=== PATIENT | female | born 1940 | race Caucasian/White ===

== ENCOUNTER 2020-08-10 23:40 | Inpatient (IN) ==
[2020-08-10] MEDS ORDERED: HYDROmorphone 2 MG/1 ML VIAL IV STA (23:58)
[2020-08-10] MEDS ORDERED: SODIUM CHLORIDE 0.9% 500 ML IV STA (23:58)
[2020-08-10] MEDS ORDERED: ONDANSETRON 4 MG/2 ML VIAL IV STA (23:58)
[2020-08-10] MEDS ORDERED: PANTOPRAZOLE 40 MG VIAL IV STA (23:58)
[2020-08-11 00:48] LABS: Basophils % 0.3 % (0.0-0.8); Eosinophils # 0.3 10*3/uL (0.0-0.87); Eosinophils % 3.2 % (0.00-10.9); Hematocrit 37.1 VOL% (35.7-47.0); Hemoglobin 12.5 GM/DL (12.0-16.0); Immature Granulocytes % 0.4 %; Immature Granulocytes Absolute 0.04 #; Lymphocytes # 1.2 10*3/uL (1.4-4.0); Lymphocytes % 11.3 % (21.3-54.2); Mean Corpuscular HGB Conc 33.7 GM/DL (32-36); Mean Platelet Volume 9.9 FL (9.6-12.0); Monocytes % 5.6 % (1.7-12.7); Neutrophils % 79.2 % (38.7-73.9); Platelet Count 192 T/CUMM (130-400); Red Blood Count 3.99 MC/CUMM (3.8-5.5); Red Cell Distribution Width 12.7 % (9.3-17.3); White Blood Count 10.2 T/CUMM (4-12)
[2020-08-11 01:08] LABS: Albumin 3.3 G/DL (3.4-5.0); Bilirubin,Total 0.5 MG/DL (0.2-1.0); Calcium 9.6 MG/DL (8.5-10.1); Potassium 3.4 MMOL/L (3.5-5.1)
[2020-08-11] MEDS ORDERED: POTASSIUM CHLORIDE 20 MEQ TABLET PO STA (01:24)
[2020-08-11 01:35] LABS: Bilirubin,Urine Negative (Negative); Blood, Urine Negative (Negative); Glucose,Urine (UA) Negative (Negative); Hyaline Casts,Urine 6 /LPF (0-3); Ketones,Urine 5 mg/dL (Negative); Mucus,Urine Occasional /LPF (Occasional); Nitrite,Urine Negative (Negative); Protein,Urine Negative; RBC,Urine 1 /HPF (0-4); Urine Appearance CLEAR (Clear); Urine Color Yellow (Yellow); Urine Specific Gravity 1.011 (1.001-1.035); Urine Urobilinogen < 2.0 EU/DL (0.2-1.0); WBC,Urine <1 /HPF (0-6)
[2020-08-11] MEDS ORDERED: HYDROmorphone 2 MG/1 ML VIAL IV PRN (02:56)
[2020-08-11] MEDS ORDERED: SODIUM CHLORIDE 0.9% 1,000 ML IV SCH (03:00)
[2020-08-11] MEDS: ONDANSETRON 4 MG/2 ML VIAL IV PRN (05:55)
[2020-08-11] MEDS ORDERED: CLINDAMYCIN INJ 900 MG in PREMIX 1 EACH IV ONE (07:22)
[2020-08-11] MEDS ORDERED: fentaNYL 100 MCG/2 ML VIAL ONE ×2 (08:12→09:30)
[2020-08-11] MEDS ORDERED: ROCURONIUM 50 MG/5 ML VIAL IV ONE (08:12)
[2020-08-11] MEDS ORDERED: LIDOCAINE 2% 5 ML VIAL ONE ×2 (08:12→10:31)
[2020-08-11] MEDS ORDERED: SEVOFLURANE 1 UNIT/15 MINUTE INH ONE (08:12)
[2020-08-11] MEDS ORDERED: SUCCINYLCHOLINE 200 MG/10 ML VIAL ONE (08:12)
[2020-08-11] MEDS ORDERED: ETOMIDATE 40 MG/20 ML VIAL IV ONE (08:12)
[2020-08-11] MEDS ORDERED: ALBUMIN 5% 12.5 GM/250 ML VIAL IV ONE (08:16)
[2020-08-11] MEDS ORDERED: PANTOPRAZOLE 40 MG TABLET PO SCH (09:00)
[2020-08-11] MEDS ORDERED: CLOPIDOGREL 75 MG TABLET PO SCH (09:00)
[2020-08-11] MEDS ORDERED: PHENYLEPHRINE 1 MG/10 ML SYRINGE IV ONE (09:07)
[2020-08-11] MEDS ORDERED: ONDANSETRON 4 MG/2 ML VIAL ONE (10:05)
[2020-08-11] MEDS ORDERED: DEXAMETHASONE 4 MG/1 ML VIAL ONE ×2 (10:05→10:31)
[2020-08-11] MEDS ORDERED: SUGAMMADEX 200 MG/2 ML VIAL IV ONE (10:06)
[2020-08-11] MEDS ORDERED: ROPIVACAINE 0.5% 30 ML VIAL ONE (10:31)
[2020-08-11 10:46] LABS: Bacteria,Urine Occasional /HPF (Few); Bilirubin,Urine Negative (Negative); Blood, Urine Small mg/dL (Negative); Glucose,Urine (UA) Negative (Negative); Ketones,Urine 5 mg/dL (Negative); Nitrite,Urine Negative (Negative); Protein,Urine Negative; RBC,Urine <1 /HPF (0-4); Squamous Epithelial Cell,Urine Occasional /HPF (0-10); Urine Appearance CLEAR (Clear); Urine Color Yellow (Yellow); Urine Specific Gravity 1.023 (1.001-1.035); Urine Urobilinogen < 2.0 EU/DL (0.2-1.0); WBC,Urine <1 /HPF (0-6)
[2020-08-11] MEDS: LOSARTAN 50 MG TABLET PO SCH (14:21)
[2020-08-11] MEDS: busPIRone 15 MG TABLET PO SCH ×2 (14:21→21:18)
[2020-08-11] MEDS: buPROPion SR 150 MG TABLET PO SCH (14:21)
[2020-08-11] MEDS: MULTIVITAMIN (CENTRUM) TABLET PO SCH (14:21)
[2020-08-11] MEDS: DILTIAZEM CD 300 MG CAPSULE PO SCH (14:22)
[2020-08-11] MEDS: ESCITALOPRAM 10 MG TABLET PO SCH (14:22)
[2020-08-11] MEDS: DILTIAZEM CD 120 MG CAPSULE PO SCH (14:23)
[2020-08-11] MEDS: PANTOPRAZOLE 40 MG VIAL IV SCH (14:24)
[2020-08-11] MEDS: ATORVASTATIN 40 MG TABLET PO SCH (14:24)
[2020-08-11] MEDS: MEMANTINE 10 MG TABLET PO SCH ×2 (14:24→21:18)
[2020-08-11] MEDS: DEXTROSE 5% LACTATED RINGERS 1,000 ML IV SCH ×2 (14:25→22:50)
[2020-08-11] MEDS ORDERED: POLYVINYL ALCOHOL 1.4% OPH SOLN 15 ML BOTTLE BOTH EYES PRN (21:09)
[2020-08-11] MEDS: DONEPEZIL 10 MG TABLET PO SCH (21:17)
[2020-08-11] MEDS: ZALEPLON 5 MG CAPSULE PO SCH (21:18)
[2020-08-12 05:33] LABS: Basophils % 0.1 % (0.0-0.8); Hematocrit 37.3 VOL% (35.7-47.0); Hemoglobin 12.3 GM/DL (12.0-16.0); Immature Granulocytes % 0.3 %; Immature Granulocytes Absolute 0.03 #; Lymphocytes # 0.6 10*3/uL (1.4-4.0); Mean Corpuscular Volume 93.5 FL (87-102); Monocytes % 5.5 % (1.7-12.7); Neutrophils % 89.1 % (38.7-73.9); Platelet Count 190 T/CUMM (130-400); Red Blood Count 3.99 MC/CUMM (3.8-5.5); White Blood Count 11.6 T/CUMM (4-12)
[2020-08-12 06:01] LABS: Acanthocytes Few; Band Neutrophils 3 % (0-10); Hypochromasia 1+; Lymphocytes 2 % (20-55); Microcytosis 1+; Segmented Neutrophils 91 % (50-85); Total Cells Counted 100
[2020-08-12 06:02] LABS: Platelet Estimate Adequate
[2020-08-12 06:04] LABS: Albumin 2.8 G/DL (3.4-5.0); Bilirubin,Total 0.7 MG/DL (0.2-1.0); Calcium 9.2 MG/DL (8.5-10.1); Osmolality,Calculated 282.5 MOS/KG (273-304); Potassium 3.8 MMOL/L (3.5-5.1); Total Protein 6.2 G/DL (6.4-8.3)
[2020-08-12] MEDS: DEXTROSE 5% LACTATED RINGERS 1,000 ML IV SCH ×5 (07:35→20:43)
[2020-08-12] MEDS: ESCITALOPRAM 10 MG TABLET PO SCH (08:52)
[2020-08-12] MEDS: DILTIAZEM CD 300 MG CAPSULE PO SCH (08:52)
[2020-08-12] MEDS: buPROPion SR 150 MG TABLET PO SCH (08:52)
[2020-08-12] MEDS: busPIRone 15 MG TABLET PO SCH ×2 (08:53→20:43)
[2020-08-12] MEDS: LOSARTAN 50 MG TABLET PO SCH (08:53)
[2020-08-12] MEDS: ATORVASTATIN 40 MG TABLET PO SCH (08:53)
[2020-08-12] MEDS: DILTIAZEM CD 120 MG CAPSULE PO SCH (08:53)
[2020-08-12] MEDS: MEMANTINE 10 MG TABLET PO SCH ×2 (08:53→20:43)
[2020-08-12] MEDS: MULTIVITAMIN (CENTRUM) TABLET PO SCH (08:53)
[2020-08-12] MEDS: PANTOPRAZOLE 40 MG VIAL IV SCH (08:58)
[2020-08-12] MEDS: HYDROmorphone 2 MG/1 ML VIAL IV PRN (10:42)
[2020-08-12] MEDS: ONDANSETRON 4 MG/2 ML VIAL IV PRN (18:49)
[2020-08-12] MEDS: DONEPEZIL 10 MG TABLET PO SCH (20:43)
[2020-08-12] MEDS: ZALEPLON 5 MG CAPSULE PO SCH (20:43)
[2020-08-13] MEDS: HYDROmorphone 2 MG/1 ML VIAL IV PRN ×3 (03:16→18:10)
[2020-08-13] MEDS: DEXTROSE 5% LACTATED RINGERS 1,000 ML IV SCH ×3 (03:16→20:20)
[2020-08-13 04:59] LABS: Basophils % 0.2 % (0.0-0.8); Eosinophils % 0.1 % (0.00-10.9); Hematocrit 35.7 VOL% (35.7-47.0); Immature Granulocytes % 0.3 %; Immature Granulocytes Absolute 0.04 #; Lymphocytes # 0.8 10*3/uL (1.4-4.0); Lymphocytes % 6.3 % (21.3-54.2); Mean Corpuscular HGB Conc 33.6 GM/DL (32-36); Mean Corpuscular Volume 92.5 FL (87-102); Monocytes % 8.3 % (1.7-12.7); Neutrophils % 84.8 % (38.7-73.9); Platelet Count 177 T/CUMM (130-400); Red Blood Count 3.86 MC/CUMM (3.8-5.5); Red Cell Distribution Width 13.1 % (9.3-17.3); White Blood Count 12.5 T/CUMM (4-12)
[2020-08-13 05:28] LABS: Calcium 8.9 MG/DL (8.5-10.1); Osmolality,Calculated 283.3 MOS/KG (273-304); Potassium 3.5 MMOL/L (3.5-5.1)
[2020-08-13] MEDS: DILTIAZEM CD 300 MG CAPSULE PO SCH (09:11)
[2020-08-13] MEDS: MULTIVITAMIN (CENTRUM) TABLET PO SCH (09:11)
[2020-08-13] MEDS: LOSARTAN 50 MG TABLET PO SCH (09:12)
[2020-08-13] MEDS: ATORVASTATIN 40 MG TABLET PO SCH (09:12)
[2020-08-13] MEDS: MEMANTINE 10 MG TABLET PO SCH ×2 (09:12→20:20)
[2020-08-13] MEDS: ESCITALOPRAM 10 MG TABLET PO SCH (09:12)
[2020-08-13] MEDS: busPIRone 15 MG TABLET PO SCH ×2 (09:12→20:20)
[2020-08-13] MEDS: DILTIAZEM CD 120 MG CAPSULE PO SCH (09:12)
[2020-08-13] MEDS: PANTOPRAZOLE 40 MG VIAL IV SCH (09:13)
[2020-08-13] MEDS: buPROPion SR 150 MG TABLET PO SCH (09:13)
[2020-08-13] MEDS: ZALEPLON 5 MG CAPSULE PO SCH (20:20)
[2020-08-13] MEDS: DONEPEZIL 10 MG TABLET PO SCH (20:20)
[2020-08-14] MEDS: DEXTROSE 5% LACTATED RINGERS 1,000 ML IV SCH ×2 (03:15→11:01)
[2020-08-14 07:46] LABS: Basophils % 0.2 % (0.0-0.8); Eosinophils # 0.1 10*3/uL (0.0-0.87); Eosinophils % 0.9 % (0.00-10.9); Hematocrit 39.9 VOL% (35.7-47.0); Hemoglobin 13.7 GM/DL (12.0-16.0); Immature Granulocytes % 0.6 %; Immature Granulocytes Absolute 0.07 #; Lymphocytes # 0.9 10*3/uL (1.4-4.0); Lymphocytes % 7.3 % (21.3-54.2); Mean Corpuscular HGB Conc 34.3 GM/DL (32-36); Mean Corpuscular Volume 91.3 FL (87-102); Mean Platelet Volume 9.7 FL (9.6-12.0); Monocytes % 8.6 % (1.7-12.7); Neutrophils % 82.4 % (38.7-73.9); Platelet Count 201 T/CUMM (130-400); Red Blood Count 4.37 MC/CUMM (3.8-5.5); Red Cell Distribution Width 12.7 % (9.3-17.3); White Blood Count 12.4 T/CUMM (4-12)
[2020-08-14 08:05] LABS: Calcium 8.9 MG/DL (8.5-10.1); Osmolality,Calculated 275.5 MOS/KG (273-304); Potassium 2.8 MMOL/L (3.5-5.1)
[2020-08-14] MEDS: DILTIAZEM CD 300 MG CAPSULE PO SCH (08:31)
[2020-08-14] MEDS: DILTIAZEM CD 120 MG CAPSULE PO SCH (08:31)
[2020-08-14] MEDS: ESCITALOPRAM 10 MG TABLET PO SCH (08:31)
[2020-08-14] MEDS: LOSARTAN 50 MG TABLET PO SCH (08:31)
[2020-08-14] MEDS: MULTIVITAMIN (CENTRUM) TABLET PO SCH (08:31)
[2020-08-14] MEDS: busPIRone 15 MG TABLET PO SCH ×2 (08:31→21:02)
[2020-08-14] MEDS: MEMANTINE 10 MG TABLET PO SCH ×2 (08:32→21:03)
[2020-08-14] MEDS: ATORVASTATIN 40 MG TABLET PO SCH (08:32)
[2020-08-14] MEDS: PANTOPRAZOLE 40 MG VIAL IV SCH (08:33)
[2020-08-14] MEDS: buPROPion SR 150 MG TABLET PO SCH (08:33)
[2020-08-14] MEDS: PANTOPRAZOLE 40 MG TABLET PO SCH (08:33)
[2020-08-14] MEDS ORDERED: POTASSIUM CHLORIDE RIDER 10 MEQ in PREMIX 1 EACH IV SCH (10:00)
[2020-08-14] MEDS ORDERED: MAGNESIUM SULF RIDER 4 GM in PREMIX 1 EACH IV ONE (11:00)
[2020-08-14] MEDS ORDERED: MAGNESIUM SULF INJ 4 GM, POTASSIUM CHLORIDE INJ 50 MEQ in SODIUM CHLORIDE 0.9% 500 ML IV ONE (11:00)
[2020-08-14] MEDS: hydrALAZINE 20 MG/1 ML VIAL IV PRN (11:31)
[2020-08-14] MEDS: DONEPEZIL 10 MG TABLET PO SCH (21:02)
[2020-08-14] MEDS: ZALEPLON 5 MG CAPSULE PO SCH (21:03)
[2020-08-15] MEDS: DEXTROSE 5% LACTATED RINGERS 1,000 ML IV SCH ×3 (01:14→17:02)
[2020-08-15] MEDS: MULTIVITAMIN (CENTRUM) TABLET PO SCH (08:59)
[2020-08-15] MEDS: PANTOPRAZOLE 40 MG TABLET PO SCH (08:59)
[2020-08-15] MEDS: DILTIAZEM CD 120 MG CAPSULE PO SCH (09:00)
[2020-08-15] MEDS: ATORVASTATIN 40 MG TABLET PO SCH (09:00)
[2020-08-15] MEDS: LOSARTAN 50 MG TABLET PO SCH (09:00)
[2020-08-15] MEDS: busPIRone 15 MG TABLET PO SCH ×2 (09:00→21:02)
[2020-08-15] MEDS: MEMANTINE 10 MG TABLET PO SCH ×2 (09:01→21:02)
[2020-08-15] MEDS: buPROPion SR 150 MG TABLET PO SCH (09:01)
[2020-08-15] MEDS: ESCITALOPRAM 10 MG TABLET PO SCH (09:01)
[2020-08-15] MEDS: DILTIAZEM CD 300 MG CAPSULE PO SCH (09:01)
[2020-08-15] MEDS: hydrALAZINE 20 MG/1 ML VIAL IV PRN (15:53)
[2020-08-15] MEDS: ZALEPLON 5 MG CAPSULE PO SCH (21:02)
[2020-08-15] MEDS: DONEPEZIL 10 MG TABLET PO SCH (21:02)
[2020-08-16] MEDS: DEXTROSE 5% LACTATED RINGERS 1,000 ML IV SCH ×3 (01:30→18:23)
[2020-08-16 07:26] LABS: Basophils % 0.2 % (0.0-0.8); Eosinophils # 0.7 10*3/uL (0.0-0.87); Hematocrit 37.6 VOL% (35.7-47.0); Hemoglobin 12.3 GM/DL (12.0-16.0); Immature Granulocytes % 0.8 %; Immature Granulocytes Absolute 0.13 #; Lymphocytes # 1.2 10*3/uL (1.4-4.0); Lymphocytes % 7.3 % (21.3-54.2); Mean Corpuscular HGB Conc 32.7 GM/DL (32-36); Mean Corpuscular Volume 92.6 FL (87-102); Monocytes % 6.8 % (1.7-12.7); Neutrophils % 80.9 % (38.7-73.9); Platelet Count 234 T/CUMM (130-400); Red Blood Count 4.06 MC/CUMM (3.8-5.5); White Blood Count 16.3 T/CUMM (4-12)
[2020-08-16 07:48] LABS: Calcium 8.3 MG/DL (8.5-10.1); Osmolality,Calculated 277.5 MOS/KG (273-304); Potassium 2.7 MMOL/L (3.5-5.1)
[2020-08-16] MEDS: DILTIAZEM CD 120 MG CAPSULE PO SCH (09:19)
[2020-08-16] MEDS: PANTOPRAZOLE 40 MG TABLET PO SCH (09:19)
[2020-08-16] MEDS: ATORVASTATIN 40 MG TABLET PO SCH (09:19)
[2020-08-16] MEDS: LOSARTAN 50 MG TABLET PO SCH (09:19)
[2020-08-16] MEDS: ESCITALOPRAM 10 MG TABLET PO SCH (09:19)
[2020-08-16] MEDS: busPIRone 15 MG TABLET PO SCH ×2 (09:19→21:26)
[2020-08-16] MEDS: MULTIVITAMIN (CENTRUM) TABLET PO SCH (09:20)
[2020-08-16] MEDS: DILTIAZEM CD 300 MG CAPSULE PO SCH (09:20)
[2020-08-16] MEDS: MEMANTINE 10 MG TABLET PO SCH ×2 (09:20→21:27)
[2020-08-16] MEDS: buPROPion SR 150 MG TABLET PO SCH (09:24)
[2020-08-16] MEDS: CIPROFLOXACIN INJ 400 MG in PREMIX 1 EACH IV SCH ×2 (09:26→21:29)
[2020-08-16] MEDS: POTASSIUM CHLORIDE 20 MEQ TABLET PO PRN ×3 (10:22→15:45)
[2020-08-16] MEDS ORDERED: DOCUSATE SODIUM 100 MG CAPSULE PO PRN (14:16)
[2020-08-16] MEDS: ZALEPLON 5 MG CAPSULE PO SCH (21:27)
[2020-08-16] MEDS: DONEPEZIL 10 MG TABLET PO SCH (21:27)
[2020-08-17] MEDS: DEXTROSE 5% LACTATED RINGERS 1,000 ML IV SCH (02:30)
[2020-08-17] MEDS: hydrALAZINE 20 MG/1 ML VIAL IV PRN ×2 (04:25→17:03)
[2020-08-17 06:07] LABS: Basophils % 0.2 % (0.0-0.8); Eosinophils # 0.8 10*3/uL (0.0-0.87); Eosinophils % 4.5 % (0.00-10.9); Hematocrit 35.4 VOL% (35.7-47.0); Hemoglobin 11.6 GM/DL (12.0-16.0); Immature Granulocytes % 0.9 %; Immature Granulocytes Absolute 0.15 #; Lymphocytes # 1.3 10*3/uL (1.4-4.0); Lymphocytes % 7.7 % (21.3-54.2); Mean Corpuscular HGB Conc 32.8 GM/DL (32-36); Mean Corpuscular Volume 94.1 FL (87-102); Mean Platelet Volume 9.7 FL (9.6-12.0); Neutrophils % 80.7 % (38.7-73.9); Platelet Count 243 T/CUMM (130-400); Red Blood Count 3.76 MC/CUMM (3.8-5.5); Red Cell Distribution Width 13.1 % (9.3-17.3)
[2020-08-17 06:21] LABS: Calcium 8.5 MG/DL (8.5-10.1); Osmolality,Calculated 275.5 MOS/KG (273-304); Potassium 3.5 MMOL/L (3.5-5.1)
[2020-08-17] MEDS: MULTIVITAMIN (CENTRUM) TABLET PO SCH (09:09)
[2020-08-17] MEDS: DILTIAZEM CD 120 MG CAPSULE PO SCH (09:09)
[2020-08-17] MEDS: ATORVASTATIN 40 MG TABLET PO SCH (09:10)
[2020-08-17] MEDS: DILTIAZEM CD 300 MG CAPSULE PO SCH (09:10)
[2020-08-17] MEDS: ESCITALOPRAM 10 MG TABLET PO SCH (09:11)
[2020-08-17] MEDS: LOSARTAN 50 MG TABLET PO SCH (09:11)
[2020-08-17] MEDS: MEMANTINE 10 MG TABLET PO SCH ×2 (09:11→21:24)
[2020-08-17] MEDS: PANTOPRAZOLE 40 MG TABLET PO SCH (09:11)
[2020-08-17] MEDS: busPIRone 15 MG TABLET PO SCH ×2 (09:12→21:24)
[2020-08-17] MEDS: buPROPion SR 150 MG TABLET PO SCH (09:14)
[2020-08-17] MEDS: metroNIDAZOLE INJ 500 MG in PREMIX 1 EACH IV SCH ×2 (09:16→17:02)
[2020-08-17] MEDS: POTASSIUM CHLORIDE RIDER 10 MEQ in PREMIX 1 EACH IV SCH ×4 (11:09→15:03)
[2020-08-17] MEDS ORDERED: LEVOFLOXACIN INJ 750 MG in PREMIX 1 EACH IV SCH (21:00)
[2020-08-17] MEDS: ZALEPLON 5 MG CAPSULE PO SCH (21:23)
[2020-08-17] MEDS: DONEPEZIL 10 MG TABLET PO SCH (21:23)
[2020-08-17] MEDS: HYDROmorphone 2 MG/1 ML VIAL IV PRN (21:34)
[2020-08-18] MEDS: metroNIDAZOLE INJ 500 MG in PREMIX 1 EACH IV SCH ×2 (01:34→09:31)
[2020-08-18 05:32] LABS: Basophils % 0.2 % (0.0-0.8); Eosinophils # 0.8 10*3/uL (0.0-0.87); Eosinophils % 5.8 % (0.00-10.9); Hematocrit 31.4 VOL% (35.7-47.0); Hemoglobin 10.9 GM/DL (12.0-16.0); Immature Granulocytes Absolute 0.13 #; Lymphocytes % 7.8 % (21.3-54.2); Mean Corpuscular HGB Conc 34.7 GM/DL (32-36); Mean Corpuscular Volume 90.2 FL (87-102); Mean Platelet Volume 9.1 FL (9.6-12.0); Monocytes % 6.9 % (1.7-12.7); Neutrophils % 78.3 % (38.7-73.9); Platelet Count 239 T/CUMM (130-400); Red Blood Count 3.48 MC/CUMM (3.8-5.5); White Blood Count 13.1 T/CUMM (4-12)
[2020-08-18 06:03] LABS: Calcium 8.8 MG/DL (8.5-10.1); Osmolality,Calculated 267.2 MOS/KG (273-304); Potassium 3.8 MMOL/L (3.5-5.1)
[2020-08-18] MEDS: MEMANTINE 10 MG TABLET PO SCH (09:30)
[2020-08-18] MEDS: PANTOPRAZOLE 40 MG TABLET PO SCH (09:30)
[2020-08-18] MEDS: busPIRone 15 MG TABLET PO SCH (09:30)
[2020-08-18] MEDS: ESCITALOPRAM 10 MG TABLET PO SCH (09:30)
[2020-08-18] MEDS: ATORVASTATIN 40 MG TABLET PO SCH (09:30)
[2020-08-18] MEDS: MULTIVITAMIN (CENTRUM) TABLET PO SCH (09:30)
[2020-08-18] MEDS: buPROPion SR 150 MG TABLET PO SCH (09:30)
[2020-08-18] MEDS: DILTIAZEM CD 300 MG CAPSULE PO SCH (09:31)
[2020-08-18] MEDS: DILTIAZEM CD 120 MG CAPSULE PO SCH (09:31)
[2020-08-18 12:10] VITALS: BP 155/67
== END 2020-08-18 13:10 | disposition home health service (06) | DRG 330 ==
LOC: N.ED 23:40 → N.EDINP 23:40 → N.5E 08-11 13:54
PROVIDERS: ADMIT Student in an Organized Health Care Education/Training Program; ATTEND Student in an Organized Health Care Education/Training Program

== ENCOUNTER 2020-08-25 12:37 | Inpatient (IN) ==
[2020-08-25 13:49] LABS: Basophils # 0.1 10*3/uL (0.0-0.2); Basophils % 0.4 % (0.0-0.8); Eosinophils # 0.3 10*3/uL (0.0-0.87); Eosinophils % 2.4 % (0.00-10.9); Hematocrit 20.5 VOL% (35.7-47.0); Hemoglobin 6.5 GM/DL (12.0-16.0); Immature Granulocytes % 1.1 %; Immature Granulocytes Absolute 0.16 #; Lymphocytes # 1.6 10*3/uL (1.4-4.0); Lymphocytes % 11.5 % (21.3-54.2); Mean Corpuscular HGB Conc 31.7 GM/DL (32-36); Mean Corpuscular Volume 96.7 FL (87-102); Mean Platelet Volume 9.1 FL (9.6-12.0); Monocytes % 6.6 % (1.7-12.7); Platelet Count 376 T/CUMM (130-400); Red Blood Count 2.12 MC/CUMM (3.8-5.5); Red Cell Distribution Width 13.9 % (9.3-17.3)
[2020-08-25 14:11] LABS: Alanine Aminotransferase 16 U/L (13-56); Albumin 2.5 G/DL (3.4-5.0); Alkaline Phosphatase 72 U/L (45-117); Aspartate Amino Transferase 17 U/L (0-37); Bilirubin,Total < 0.39 MG/DL (0.2-1.0); Blood Urea Nitrogen 42 MG/DL (7-18); Calcium 8.6 MG/DL (8.5-10.1); Carbon Dioxide 29 MMOL/L (21-32); Estimated Glom Filtration Rate 33 ML/MIN; Glucose 114 MG/DL (74-106); Osmolality,Calculated 290.4 MOS/KG (273-304); Potassium 4.4 MMOL/L (3.5-5.1); Sodium 140 MMOL/L (136-145); Total Protein 4.8 G/DL (5.0-7.5)
[2020-08-25 14:12] LABS: INR 1.1; PT Patient Result 11.3 SECS (9.8-11.9); Partial Thromboplastin Time 21.6 SECS (23.9-33.8)
[2020-08-25] MEDS ORDERED: SODIUM CHLORIDE 0.9% 1,000 ML IV PRN (14:41)
[2020-08-25] MEDS ORDERED: DEXTROSE 50% 25 GM/50 ML VIAL IV PRN (15:18)
[2020-08-25] MEDS ORDERED: GLUCAGON 1 MG VIAL IM PRN (15:18)
[2020-08-25] MEDS ORDERED: ONDANSETRON 4 MG/2 ML VIAL IV PRN (15:18)
[2020-08-25] MEDS ORDERED: ACETAMINOPHEN 325 MG TABLET PO PRN (15:18)
[2020-08-25] MEDS: SODIUM CHLORIDE 0.9% 1,000 ML IV SCH (16:57)
[2020-08-25] MEDS: PANTOPRAZOLE 40 MG TABLET PO SCH (16:57)
[2020-08-25 18:13] LABS: Hematocrit 18.8 VOL% (35.7-47.0)
[2020-08-25 20:32] LABS: Bacteria,Urine Occasional /HPF (Few); Bilirubin,Urine Negative (Negative); Blood, Urine Negative (Negative); Glucose,Urine (UA) Negative (Negative); Ketones,Urine Negative (Negative); Nitrite,Urine Negative (Negative); Protein,Urine Negative; RBC,Urine 3 /HPF (0-4); Squamous Epithelial Cell,Urine Occasional /HPF (0-10); Urine Appearance CLEAR (Clear); Urine Color Yellow (Yellow); Urine Urobilinogen < 2.0 EU/DL (0.2-1.0); WBC,Urine 7 /HPF (0-6)
[2020-08-25] MEDS: MEMANTINE 10 MG TABLET PO SCH (20:57)
[2020-08-25] MEDS: DONEPEZIL 10 MG TABLET PO SCH (20:57)
[2020-08-25] MEDS: ZALEPLON 5 MG CAPSULE PO PRN (21:01)
[2020-08-26] MEDS: SODIUM CHLORIDE 0.9% 1,000 ML IV SCH ×2 (02:08→16:52)
[2020-08-26 04:10] LABS: Basophils # 0.1 10*3/uL (0.0-0.2); Basophils % 0.5 % (0.0-0.8); Eosinophils # 0.4 10*3/uL (0.0-0.87); Eosinophils % 4.4 % (0.00-10.9); Hematocrit 23.8 VOL% (35.7-47.0); Hemoglobin 8.1 GM/DL (12.0-16.0); Immature Granulocytes % 0.9 %; Immature Granulocytes Absolute 0.09 #; Lymphocytes # 1.8 10*3/uL (1.4-4.0); Lymphocytes % 18.2 % (21.3-54.2); Mean Corpuscular Volume 91.2 FL (87-102); Mean Platelet Volume 8.9 FL (9.6-12.0); Monocytes % 7.3 % (1.7-12.7); NRBC # 0.03 10*3/uL; Neutrophils % 68.7 % (38.7-73.9); Platelet Count 259 T/CUMM (130-400); Red Blood Count 2.61 MC/CUMM (3.8-5.5); Red Cell Distribution Width 13.7 % (9.3-17.3); White Blood Count 10.1 T/CUMM (4-12)
[2020-08-26 04:45] LABS: Bilirubin,Total 0.6 MG/DL (0.2-1.0); Calcium 8.3 MG/DL (8.5-10.1); Osmolality,Calculated 285.3 MOS/KG (273-304); Potassium 3.8 MMOL/L (3.5-5.1); Thyroid Stimulating Hormone 5.84 uIU/ml (0.358-3.74); Total Protein 4.3 G/DL (5.0-7.5)
[2020-08-26] MEDS ORDERED: SODIUM CHLORIDE 0.9% 1,000 ML IV PRN (08:36)
[2020-08-26] MEDS: ATORVASTATIN 40 MG TABLET PO SCH (09:40)
[2020-08-26] MEDS: buPROPion XL 150 MG TABLET PO SCH (09:40)
[2020-08-26] MEDS: PANTOPRAZOLE 40 MG TABLET PO SCH (09:40)
[2020-08-26] MEDS: MEMANTINE 10 MG TABLET PO SCH ×2 (09:41→21:04)
[2020-08-26 13:23] LABS: Hematocrit 27.6 VOL% (35.7-47.0); Hemoglobin 9.2 GM/DL (12.0-16.0)
[2020-08-26 20:54] LABS: Hematocrit 26.1 VOL% (35.7-47.0); Hemoglobin 8.7 GM/DL (12.0-16.0)
[2020-08-26] MEDS: DONEPEZIL 10 MG TABLET PO SCH (21:04)
[2020-08-26] MEDS: ZALEPLON 5 MG CAPSULE PO PRN (21:04)
[2020-08-27 05:30] LABS: Basophils % 0.4 % (0.0-0.8); Eosinophils # 0.4 10*3/uL (0.0-0.87); Eosinophils % 5.9 % (0.00-10.9); Hematocrit 26.1 VOL% (35.7-47.0); Hemoglobin 8.5 GM/DL (12.0-16.0); Immature Granulocytes % 1.1 %; Immature Granulocytes Absolute 0.08 #; Lymphocytes # 1.1 10*3/uL (1.4-4.0); Mean Corpuscular HGB Conc 32.6 GM/DL (32-36); Mean Corpuscular Volume 94.6 FL (87-102); Mean Platelet Volume 8.7 FL (9.6-12.0); Monocytes % 9.3 % (1.7-12.7); NRBC # 0.03 10*3/uL; Neutrophils % 68.3 % (38.7-73.9); Platelet Count 259 T/CUMM (130-400); Red Blood Count 2.76 MC/CUMM (3.8-5.5); White Blood Count 7.4 T/CUMM (4-12)
[2020-08-27 05:56] LABS: Calcium 8.5 MG/DL (8.5-10.1); Osmolality,Calculated 283.1 MOS/KG (273-304); Potassium 3.3 MMOL/L (3.5-5.1)
[2020-08-27] MEDS: ATORVASTATIN 40 MG TABLET PO SCH (08:21)
[2020-08-27] MEDS: buPROPion XL 150 MG TABLET PO SCH (08:21)
[2020-08-27] MEDS: POTASSIUM CHLORIDE 20 MEQ TABLET PO PRN ×3 (08:21→13:32)
[2020-08-27] MEDS: PANTOPRAZOLE 40 MG TABLET PO SCH (08:21)
[2020-08-27] MEDS: MEMANTINE 10 MG TABLET PO SCH ×2 (08:21→21:13)
[2020-08-27] MEDS: SODIUM CHLORIDE 0.9% 1,000 ML IV SCH (09:29)
[2020-08-27] MEDS: DONEPEZIL 10 MG TABLET PO SCH (21:13)
[2020-08-28 04:16] LABS: Basophils % 0.4 % (0.0-0.8); Eosinophils # 0.4 10*3/uL (0.0-0.87); Eosinophils % 5.5 % (0.00-10.9); Hematocrit 26.8 VOL% (35.7-47.0); Immature Granulocytes Absolute 0.07 #; Lymphocytes # 1.5 10*3/uL (1.4-4.0); Lymphocytes % 20.8 % (21.3-54.2); Mean Corpuscular HGB Conc 33.6 GM/DL (32-36); Mean Corpuscular Volume 93.4 FL (87-102); Mean Platelet Volume 8.7 FL (9.6-12.0); Monocytes % 10.5 % (1.7-12.7); Neutrophils % 61.8 % (38.7-73.9); Platelet Count 264 T/CUMM (130-400); Red Blood Count 2.87 MC/CUMM (3.8-5.5); Red Cell Distribution Width 14.4 % (9.3-17.3); White Blood Count 7.1 T/CUMM (4-12)
[2020-08-28 04:38] LABS: Calcium 8.7 MG/DL (8.5-10.1); Osmolality,Calculated 277.4 MOS/KG (273-304); Potassium 3.6 MMOL/L (3.5-5.1)
[2020-08-28] MEDS: PANTOPRAZOLE 40 MG TABLET PO SCH (09:21)
[2020-08-28] MEDS: MEMANTINE 10 MG TABLET PO SCH ×2 (09:21→21:03)
[2020-08-28] MEDS: ATORVASTATIN 40 MG TABLET PO SCH (09:21)
[2020-08-28] MEDS: LOSARTAN 25 MG TABLET PO SCH (09:21)
[2020-08-28] MEDS: buPROPion XL 150 MG TABLET PO SCH (09:21)
[2020-08-28 11:53] LABS: Basophils % 0.4 % (0.0-0.8); Eosinophils # 0.2 10*3/uL (0.0-0.87); Eosinophils % 2.5 % (0.00-10.9); Hematocrit 29.5 VOL% (35.7-47.0); Hemoglobin 9.6 GM/DL (12.0-16.0); Immature Granulocytes % 0.6 %; Immature Granulocytes Absolute 0.05 #; Lymphocytes # 0.9 10*3/uL (1.4-4.0); Lymphocytes % 11.4 % (21.3-54.2); Mean Corpuscular HGB Conc 32.5 GM/DL (32-36); Mean Corpuscular Volume 94.9 FL (87-102); Mean Platelet Volume 8.7 FL (9.6-12.0); Monocytes % 8.7 % (1.7-12.7); Neutrophils % 76.4 % (38.7-73.9); Platelet Count 290 T/CUMM (130-400); Red Blood Count 3.11 MC/CUMM (3.8-5.5); Red Cell Distribution Width 14.9 % (9.3-17.3); White Blood Count 7.9 T/CUMM (4-12)
[2020-08-28 14:04] LABS: Bilirubin,Urine Negative (Negative); Blood, Urine Negative (Negative); Glucose,Urine (UA) Negative (Negative); Hyaline Casts,Urine 3 /LPF (0-3); Ketones,Urine Negative (Negative); Nitrite,Urine Negative (Negative); Protein,Urine Negative; RBC,Urine 2 /HPF (0-4); Squamous Epithelial Cell,Urine Occasional /HPF (0-10); Urine Appearance CLEAR (Clear); Urine Color Yellow (Yellow); Urine Specific Gravity 1.008 (1.001-1.035); Urine Urobilinogen < 2.0 EU/DL (0.2-1.0); WBC,Urine 1 /HPF (0-6)
[2020-08-28] MEDS ORDERED: SKIN HEALING OINT (AQUAPHOR) 50 GM TUBE TOP PRN (16:22)
[2020-08-28] MEDS: diphenhydrAMINE 25 MG/10 ML UDCUP PO PRN (17:05)
[2020-08-28] MEDS: DONEPEZIL 10 MG TABLET PO SCH (21:03)
[2020-08-29 05:54] LABS: Basophils % 0.4 % (0.0-0.8); Eosinophils # 0.4 10*3/uL (0.0-0.87); Eosinophils % 4.7 % (0.00-10.9); Hematocrit 27.8 VOL% (35.7-47.0); Immature Granulocytes % 0.6 %; Immature Granulocytes Absolute 0.05 #; Lymphocytes # 1.4 10*3/uL (1.4-4.0); Lymphocytes % 17.2 % (21.3-54.2); Mean Corpuscular HGB Conc 32.4 GM/DL (32-36); Mean Corpuscular Volume 95.5 FL (87-102); Mean Platelet Volume 8.8 FL (9.6-12.0); Monocytes % 8.9 % (1.7-12.7); Neutrophils % 68.2 % (38.7-73.9); Platelet Count 276 T/CUMM (130-400); Red Blood Count 2.91 MC/CUMM (3.8-5.5); White Blood Count 8.1 T/CUMM (4-12)
[2020-08-29 06:15] LABS: Calcium 8.7 MG/DL (8.5-10.1); Potassium 3.4 MMOL/L (3.5-5.1)
[2020-08-29] MEDS: ATORVASTATIN 40 MG TABLET PO SCH (10:23)
[2020-08-29] MEDS: PANTOPRAZOLE 40 MG TABLET PO SCH (10:23)
[2020-08-29] MEDS: LOSARTAN 25 MG TABLET PO SCH (10:23)
[2020-08-29] MEDS: MEMANTINE 10 MG TABLET PO SCH ×2 (10:23→20:49)
[2020-08-29] MEDS: buPROPion XL 150 MG TABLET PO SCH (10:23)
[2020-08-29] MEDS: POTASSIUM CHLORIDE 20 MEQ TABLET PO PRN ×3 (10:24→19:15)
[2020-08-29] MEDS: diphenhydrAMINE 25 MG/10 ML UDCUP PO PRN (11:06)
[2020-08-29] MEDS: DONEPEZIL 10 MG TABLET PO SCH (20:49)
[2020-08-30 08:06] VITALS: BP 130/54
[2020-08-30] MEDS: ATORVASTATIN 40 MG TABLET PO SCH (08:55)
[2020-08-30] MEDS: MEMANTINE 10 MG TABLET PO SCH (08:55)
[2020-08-30] MEDS: LOSARTAN 25 MG TABLET PO SCH (08:55)
[2020-08-30] MEDS: buPROPion XL 150 MG TABLET PO SCH (08:56)
[2020-08-30] MEDS: PANTOPRAZOLE 40 MG TABLET PO SCH (08:58)
== END 2020-08-30 13:03 | disposition home health service (06) | DRG 813 ==
LOC: N.ED 12:37 → SUATTDRO 15:02 → N.EDINP 15:02 → N.3E 16:02
PROVIDERS: ADMIT Internal Medicine; ATTEND Internal Medicine